=== PATIENT | male | born 1945 | race Caucasian/White ===

== ENCOUNTER → 2021-06-04 | Outpatient (CLI) | payer MEDICARE ==
--- NOTE | 2021-06-04 14:52 | CARD ---
MR#: [id number] Date of Study: 06/04/2021 Ordering Physician: CURTIS GUY, Referring Physician: CURTIS GUY Tech: Sarah Beth Cortes [facility] APPROVED REPORT EXAM: Two-dimensional and M-mode echocardiogram with Doppler and color Doppler. Other Information Quality : AverageHR: 99bpm Rhythm : NSR INDICATION COPD Dyspnea 2D DIMENSIONS RVDd4.2 (2.9-3.5cm)Left Atrium(2D)4.2 (1.6-4.0cm) IVSd1.5 (0.7-1.1cm)Aortic Root(2D)3.3 (2.0-3.7cm) LVDd4.7 (3.9-5.9cm)LVOT Diameter2.5 (1.8-2.4cm) PWd1.5 (0.7-1.1cm)LVDs2.6 (2.5-4.0cm) FS (%) 45.0 %SV77.7 ml LVEF(%)76.3 (>50%) Aortic Valve AoV Peak Maxi.199.9cm/sAoV VTI39.9cm AO Peak GR.16.0mmHgLVOT Peak Maxi.109.9cm/s AO Mean GR.7mmHgAVA (VMAX)2.79cm2 Mitral Valve MV E Fhzkxffi50.2cm/sMV DECEL [id number] MV A Zewjtahc788.6cm/sE/A Ratio0.6 Tricuspid Valve TR P. Ehetsdud493kf/sTR Peak Gr.39mmHg LEFT VENTRICLE The left ventricle is normal size. There is mild to moderate concentric left ventricular hypertrophy. The left ventricular systolic function is normal. Estimated ejection fraction 55%. There is normal LV segmental wall motion. Transmitral Doppler flow pattern is Grade I-abnormal relaxation pattern. RIGHT VENTRICLE The right ventricle is normal size. There is normal right ventricular wall thickness. The right ventr icular systolic function is normal. ATRIA The left atrium size is normal. The right atrium size is normal. The interatrial septum is intact wit h no evidence for an atrial septal defect or patent foramen ovale as noted on 2-D or Doppler imaging. AORTIC VALVE The aortic valve is calcified and displays decreased opening. Doppler and Color Flow revealed no sign ificant aortic regurgitation. There is trace valvular aortic stenosis. MITRAL VALVE The mitral valve is normal in structure and function. There is no evidence of mitral valve prolapse. There is no mitral valve stenosis. Doppler and Color-flow revealed mild mitral regurgitation. TRICUSPID VALVE The tricuspid valve is normal in structure and function. Doppler and Color Flow revealed mild tricusp id regurgitation. Estimated PAP 43-48 mmHg. There is no tricuspid valve stenosis. PULMONIC VALVE The pulmonary valve is normal in structure and function. Doppler and Color Flow revealed no pulmonic valvular regurgitation. GREAT VESSELS The aortic root is normal in size. The ascending aorta is normal in size. The IVC is normal in size a nd collapses >50% with inspiration. PERICARDIAL EFFUSION There is no evidence of significant pericardial effusion. Critical Notification Critical Value: No <Conclusion> The left ventricular systolic function is normal. Estimated ejection fraction 55%. Transmitral Doppler flow pattern is Grade I-abnormal relaxation pattern. Mild mitral regurgitation. Mild tricuspid regurgitation. Estimated PAP 45 mmHg. There is no evidence of significant pericardial effusion. Signed by : Dario Blanchard, Electronically Approved : 06/04/2021 14:51:45
== END ==
LOC: ECHO 10:52
PROVIDERS: ATTEND Family Medicine
DX: I08.3 Combined rheumatic disorders of mitral, aortic and tricuspid valves (principal); R60.0 Localized edema
CPT/HCPCS: 93306

== ENCOUNTER → 2021-06-13 | Outpatient (CLI) | payer MEDICARE ==
--- NOTE | 2021-06-14 11:58 | SLEEP ---
DATE OF STUDY: 06/13/2021 HOME SLEEP STUDY ATTENDING PHYSICIAN: Faizan Leiva MD INDICATION: The patient is 75 years old who weighs 170 pounds with a BMI of 23.7. The patient's Scammon score was 22. The patient underwent home sleep study performed at [facility]. Total recording time was 531 minutes. During the night study, the patient had 23 obstructive apneas, 1 central apnea, 15 mixed apneas and 115 hypopneas. The patient's AHI was 21 per hour. Nocturnal oximetry study revealed an average oxygen saturation of 87% with a lowest of 72%. 318 minutes were spent with oxygen saturation less than 90%. IMPRESSION: 1. Moderate obstructive sleep apnea at an AHI of 21 per hour. 2. Moderate to severe nocturnal hypoxia secondary to obstructive sleep apnea. RECOMMENDATIONS: 1. The patient will benefit from in-lab CPAP titration study. 2. Once the patient is optimally treated with CPAP, then follow up in 4-6 weeks to assess compliance and to document clinical improvement. 3. Avoid [employer] depressants. 4. Cautioned regarding driving until symptoms of sleep apnea resolve with above recommendations. LIZ DR: Jolene TID: [id number]
== END ==
LOC: RT 10:52
PROVIDERS: ATTEND Family Medicine
DX: G47.33 Obstructive sleep apnea (adult) (pediatric) (principal); R09.02 Hypoxemia
CPT/HCPCS: G0399

== ENCOUNTER → 2021-07-03 | Outpatient (CLI) | payer MEDICARE ==
--- NOTE | 2021-07-04 17:58 | SLEEP ---
DATE OF STUDY: 07/03/2021 SLEEP STUDY ATTENDING PHYSICIAN: Curtis Guy MD. The patient is a 76-year-old who weighs 170 pounds with a BMI of 24. The patient had a home sleep study previously and was found to have moderate CLARENCE at an AHI of 21 per hour. The study was from 06/13/2021. The patient returned to [facility] for CPAP titration study. During the night study, the patient spent 491 minutes in bed and slept for 24 minutes with a sleep efficiency of 58%. Sleep latency was 36 minutes with a REM latency of 167 minutes. Sleep architecture showed normal stage 1 sleep, increased stage 2 sleep, absent slow wave and reduced REM sleep. EKG monitoring revealed an average heart rate of 73 beats per minute. Frequent PVCs seen. No sustained arrhythmias observed. PLMS were seen at an index of 9 per hour and none caused EEG arousals. The patient was started on CPAP at a pressure of 5 cm water and titrated up to 13 cm of water. Best results were seen at a CPAP pressure of 11 cm water. The patient slept for 136 minutes. The patient had supine as well as REM sleep. The patient's AHI was reduced to 0 per hour. Oxygen saturation remained above 88% except during REM sleep with saturation dropping to lowest of 81%. IMPRESSION: 1. Moderate sleep apnea diagnosed by home sleep study. 2. Nocturnal hypoxia, resolved with CPAP. However, there were few desaturations seen while the patient slept during REM sleep. 3. No significant periodic limb movements. RECOMMENDATIONS: 1. CPAP at 11 cm water completely eliminated the patient's sleep apnea and should be used on a nightly basis. 2. Follow up in 4-6 weeks to assess compliance with CPAP and to document clinical improvement. 3. Avoid [employer] depressants. 4. Cautioned regarding driving until symptoms of sleep apnea resolve with the use of CPAP. ENRIQUE/ANDREW DR: Jolene TID: [id number] CC: CURTIS GUY MD
== END ==
LOC: RT 19:03
PROVIDERS: ATTEND Family Medicine
DX: G47.33 Obstructive sleep apnea (adult) (pediatric) (principal); R09.02 Hypoxemia
CPT/HCPCS: 95811